=== PATIENT | male | born 1980 | race Hispanic/Latino ===

== ENCOUNTER 2017-06-29 21:51 | Emergency (ER) | payer OTHER ==
[2017-06-29 21:57] VITALS: BP 148/79; PULSE 89; RESP 18; TEMP 97.1; O2SAT 97
--- NOTE | 2017-06-29 22:35 | ED PDOC ---
HPI: Back Time Seen by Provider: 06/29/17 22:04 Chief Complaint (Nursing): Back Pain Chief Complaint (Provider): fall; back pain History Per: Patient History/Exam Limitations: no limitations Onset/Duration Of Symptoms: Hrs Current Symptoms Are (Timing): Still Present Additional History Per: Patient Additional Complaint(s): 37 y/o male presents with right flank pain x 3 hours. Patient states he was at the top of a 6 foot ladder and slipped and fell on right side. Patient states pain mostly in right back area, worse with movement, cough, and deep breaths. Denies head injury, nausea/vomiting, abdominal pain, hematuria, bowel/bladder incontinence, numbness/weakness extremities. Past Medical History Reviewed: Historical Data, Nursing Documentation, Vital Signs Vital Signs: Last Vital Signs Temp 97.1 F L 06/29/17 21:54 Pulse 89 06/29/17 21:54 Resp 18 06/29/17 21:54 BP 148/79 06/29/17 21:54 Pulse Ox 97 06/29/17 21:54 - Medical History PMH: Asthma Denies: Chronic Kidney Disease - Surgical History Surgical History: Hernia Repair - Family History Family History: States: No Known Family Hx - Immunization History Hx Tetanus Toxoid Vaccination: Yes Hx Influenza Vaccination: No Hx Pneumococcal Vaccination: No - Home Medications Home Medications: Ambulatory Orders Medication Instructions Recorded Cyclobenzaprine [Cyclobenzaprine 10 mg PO BID PRN #14 tab 06/30/17 HCl] Naproxen [Naprosyn] 500 mg PO Q12 PRN #20 tablet 06/30/17 - Allergies Allergies/Adverse Reactions: Allergies Allergy/AdvReac Type Severity Reaction Status Date / Time No Known Allergies Allergy Verified 03/04/16 11:03 Review of Systems ROS Statement: Except As Marked, All Systems Reviewed And Found Negative Musculoskeletal: Positive for: Back Pain Physical Exam - Reviewed Nursing Documentation Reviewed: Yes Vital Signs Reviewed: Yes - Physical Exam Appears: Positive for: Well, Non-toxic, No Acute Distress Head Exam: Positive for: ATRAUMATIC, NORMAL INSPECTION, NORMOCEPHALIC ENT: Positive for: Normal ENT Inspection Cardiovascular/Chest: Positive for: Regular Rate, Rhythm Respiratory: Positive for: Normal Breath Sounds Gastrointestinal/Abdominal: Positive for: Bowel Sounds, Soft, Tenderness (right flank) Back: Positive for: R CVA Tenderness, Other (tender to palpate right posterior inferior ribs; no swelling, ecchymosis, crepitus noted. ). Negative for: L CVA Tenderness, Vertebral Tenderness, Decreased ROM, Muscle Spasm Extremity: Positive for: Normal ROM Neurologic/Psych: Positive for: Alert, Oriented - Laboratory Results Result Diagrams: 06/29/17 23:35 06/29/17 23:35 - ECG O2 Sat by Pulse Oximetry: 97 - Progress ED Course And Treament: EXAM: CT Abdomen and Pelvis With Intravenous Contrast CLINICAL HISTORY: 37 years old, male; Injury or trauma; Fall; Work related; Initial encounter; Blunt; Ruq; Blunt trauma (contusions or hematomas); Prior surgery; Surgery date: 6+ months; Surgery type : Umbilical hernia repair; Additional info: Fell off ladder, right back/flank pain TECHNIQUE: Axial computed tomography images of the abdomen and pelvis with intravenous contrast. All CT scans at this facility use one or more dose reduction techniques, viz.: automated exposure control; ma/kV adjustment per patient size (including targeted exams where dose is matched to indication; i.e. head); or iterative reconstruction technique. Coronal and sagittal reformatted images were created and reviewed. CONTRAST: 95 mL of [id number] administered intravenously. COMPARISON: No relevant prior studies available. FINDINGS: Lower thorax: No acute findings. ABDOMEN: Liver: Findings consistent with fatty infiltration of the liver are identified. Gallbladder and bile ducts: Unremarkable. No calcified stones. No ductal dilation. Pancreas: Unremarkable. No mass. No ductal dilation. Spleen: Unremarkable. No splenomegaly. Adrenals: Unremarkable. No mass. Kidneys and ureters: Unremarkable. No solid mass. No hydronephrosis. Stomach and bowel: Colonic diverticula are present although there are no CT findings to suggest diverticulitis. No obstruction. Appendix: The appendix is visualized and appears normal. PELVIS: Bladder: Unremarkable. No mass. Reproductive: Unremarkable as visualized. ABDOMEN and PELVIS: Intraperitoneal space: Unremarkable. No free air. No significant fluid collection. Bones/joints: No acute fracture. No dislocation. Soft tissues: Unremarkable. Vasculature: Unremarkable. No abdominal aortic aneurysm. Lymph nodes: Unremarkable. No enlarged lymph nodes. IMPRESSION: No acute findings. EXAM: CT Chest With Intravenous Contrast EXAM DATE/TIME: 06/29/2017 10:49 PM CLINICAL HISTORY: 37 years old, male; Injury or trauma; Fall; Work related; Initial encounter; Blunt; Ruq; Blunt trauma (contusions or hematomas); Prior surgery; Surgery date: 6+ months; Surgery type : Umbilical hernia repair; Additional info: Fell off ladder, right back/flank pain TECHNIQUE: Axial computed tomography images of the chest with intravenous contrast. All CT scans at this facility use one or more dose reduction techniques, viz.: automated exposure control; ma/kV adjustment per patient size (including targeted exams where dose is matched to indication; i.e. head); or iterative reconstruction technique. Coronal and sagittal reformatted images were created and reviewed. CONTRAST: 95 mL of [id number] administered intravenously. COMPARISON: CT - ABDOMEN^ABD_ROUTINE_WO (ADULT) 2009-04-03 02:39 FINDINGS: Lungs: Unremarkable. No mass. No consolidation. Pleural space: Unremarkable. No pneumothorax. No significant effusion. Heart: Cardiomegaly is identified. No significant pericardial effusion. Bones/joints: Unremarkable. No acute fracture. No dislocation. Soft tissues: Unremarkable. Vasculature: Unremarkable. No thoracic aortic aneurysm. Lymph nodes: Unremarkable. No enlarged lymph nodes. IMPRESSION: No acute findings. Thank you for allowing us to participate in the care of your patient. Patient educated on findings, discharged with rx naproxen, flexeril. Advised rest, ice/warm compresses. Follow up with PMD 2-3 days. Return precautions given. Disposition - Clinical Impression Clinical Impression: Right-sided back pain - Patient ED Disposition Is Patient to be Admitted: No Counseled Patient/Family Regarding: Studies Performed, Diagnosis, Need For Followup, Rx Given - Disposition Disposition: Routine/Home Disposition Time: 03:00 Condition: IMPROVED Prescriptions: Cyclobenzaprine [Cyclobenzaprine HCl] 10 mg PO BID PRN #14 tab PRN Reason: Muscle Spasm Naproxen [Naprosyn] 500 mg PO Q12 PRN #20 tablet PRN Reason: Pain, Moderate (4-7) Instructions: Back Pain (ED), Rib Contusion (ED) Forms: [employer] ([place]), [facility] ED School/Work Excuse
[2017-06-30 00:15] LABS: BASO # 0.1 K/uL (0.0-0.2); BASO % 0.5 % (0.0-2.0); EOS # 0.3 K/uL (0.0-0.7); EOS % 3.3 % (0.0-4.0); HEMATOCRIT 45.9 % (35.0-51.0); LYMPH # 3.5 K/uL (1.0-4.3); LYMPH % 34.6 % (20.0-40.0); MEAN CELL VOLUME 88.4 fl (80.0-94.0); MEAN CORPUSCULAR HEMOGLOBIN 28.9 pg (27.0-31.0); MEAN CORPUSCULAR HGB CONC 32.8 g/dL (33.0-37.0); MONO % 9.9 % (0.0-10.0); NEUT # 5.3 K/uL (1.8-7.0); NEUT % 51.7 % (50.0-75.0); NRBC % 0.1 % (0.0-0.0); RED CELL DISTRIBUTION WIDTH 13.3 % (11.5-14.5); WHITE BLOOD COUNT 10.2 K/uL (4.8-10.8)
[2017-06-30] MEDS ORDERED: Iohexol 300 100 ML IJ ONE (00:31)
[2017-06-30 00:55] LABS: CHLORIDE 103 mmol/L (98-107); POTASSIUM 3.7 MMOL/L (3.6-5.0); SODIUM 140 mmol/l (132-148)
[2017-06-30 00:56] LABS: ALB/GLOB RATIO 1.5 (1.0-2.1); ALKALINE PHOSPHATASE 59 U/L (38-126); ALT/SGPT 78 U/L (21-72); AST/SGOT 42 U/L (17-59); BILIRUBIN,TOTAL 0.3 mg/dl (0.2-1.3); BLOOD UREA NITROGEN 21 mg/dl (9-20); CALCIUM 9.4 mg/dL (8.4-10.2); CARBON DIOXIDE 29 mmol/L (22-30); GFR AFRICAN-AMERICAN > 60; GLUCOSE,RANDOM 87 mg/dL (75-110); TOTAL PROTEIN 7.5 G/DL (6.3-8.2)
--- NOTE | 2017-06-30 13:58 | CT ---
PROCEDURE: CT Chest, Abdomen and Pelvis with intravenous contrast HISTORY: fell off ladder, right back/flank pain COMPARISON: Abdomen and pelvis CT examination without contrast 04/03/2009. TECHNIQUE: IV dose administered: Visipaque 320, 95 cc. Radiation dose: Total exam DLP = 1510.00 mGy-cm. This CT exam was performed using one or more of the following dose reduction techniques: Automated exposure control, adjustment of the mA and/or kV according to patient size, and/or use of iterative reconstruction technique. FINDINGS: CT CHEST WITH CONTRAST: LUNGS: Clear. No nodule, mass or consolidation. MEDIASTINUM: Unremarkable. Normal caliber aorta and pulmonary arterial trunk. No aortic dissection. Normal size heart. LYMPH NODES: Unremarkable. PLEURA: Unremarkable. No pneumothorax. No pleural fluid. BONES: No acute fracture or destructive bony lesion identified. OTHER FINDINGS: None. CT ABDOMEN AND PELVIS: LIVER: Limited diffuse fatty infiltration liver appreciated. No gross lesion or ductal dilatation. GALLBLADDER AND BILE DUCTS: Unremarkable. PANCREAS: Unremarkable. No gross lesion or ductal dilatation. SPLEEN: Unremarkable. ADRENALS: Unremarkable. No mass. KIDNEYS AND URETERS: Unremarkable. No hydronephrosis. No solid mass. VASCULATURE: Unremarkable. No aortic aneurysm. BOWEL: Small bowel loops appear unremarkable as imaged. Large-bowel loops are remarkable for sigmoid diverticulosis without diverticulitis evident grossly. APPENDIX: Normal appendix. PERITONEUM: Unremarkable. No free fluid. No free air. LYMPH NODES: Unremarkable. No enlarged lymph nodes. BLADDER: Unremarkable. REPRODUCTIVE: Unremarkable. BONES: No acute fracture or destructive bony lesion identified. OTHER FINDINGS: None. IMPRESSION: 1. No acute posttraumatic pathology appreciated the chest, abdomen or pelvis including bony fracture. 2. Limited hepatic steatosis. 3. Sigmoid diverticulosis without diverticulitis. Concordant preliminary report from [facility], 06/29/2017.
== END 2017-06-30 03:22 | disposition home or self-care (01) ==
LOC: H.ER 21:51
DX: M54.9 Dorsalgia, unspecified (principal); S20.219A Contusion of unspecified front wall of thorax, initial encounter; W11.XXXA Fall on and from ladder, initial encounter; Y99.0 Civilian activity done for income or pay
CPT/HCPCS: 71260; 74177; 80053; 85025; 99282; Q9967